=== PATIENT | male | born 1960 | race Two or more races ===

== ENCOUNTER 2017-03-07 14:09 | Emergency (ER) | payer SELFPAY ==
[~2017-03-07] VITALS: Ht 175.3 cm; Wt 105.0 kg
[2017-03-07 14:13] VITALS: BP 188/94
[2017-03-07] MEDS ORDERED: LOSA50TA37 PO (14:16)
[2017-03-07 14:27] LABS: GLUCOSE,POINT OF CARE 196 MG/DL (70-110)
== END 2017-03-07 16:20 | disposition left against medical advice (07) ==
LOC: EMS 14:11
DX: Z53.21 Procedure and treatment not carried out due to patient leaving prior to being seen by health care provider (principal)
CPT/HCPCS: 82962

== ENCOUNTER 2023-09-12 20:12 | Emergency (ER) | payer OTHER ==
[~2023-09-12] VITALS: Ht 175.3 cm; Wt 100.0 kg
[~2023-09-12 20:12] MED LIST: LOSA-382 PO
[2023-09-12 20:22] VITALS: TEMP 99.5
[2023-09-12] MEDS ORDERED: TRAM-559 PO (23:14)
[2023-09-12] MEDS ORDERED: SULF-261 PO (23:14)
[2023-09-12] MEDS ORDERED: KETOROLAC TROMETHAMINE 30 MG/ML VIAL IM ONE (23:15)
[2023-09-12] MEDS ORDERED: KETOROLAC TROMETHAMINE 60 MG/2 ML VIAL IM ONE (23:15)
[2023-09-12 23:58] VITALS: BP 132/86; PULSE 92; RESP 16
== END 2023-09-13 | disposition home or self-care (01) ==
LOC: EMS 20:41
DX: L03.116 Cellulitis of left lower limb (principal); I10 Essential (primary) hypertension
CPT/HCPCS: 99283; 96372; J1885